=== PATIENT | male | born 1930 | race Two or more races ===

== ENCOUNTER 2020-03-25 06:00 | Day surgery (SDC) | payer OTHER ==
[~2020-03-25 06:00] MED LIST: LEVO-T75 MCG PO; OMEGA-31000 MG PO; SIMVASTATIN5 MG PO; VITAMIN C500 MG PO; XARELTO10 MG PO
[2020-03-25] MEDS ORDERED: RECTICARE30 GM TOP (15:24)
[2020-03-25] MEDS ORDERED: ULTRAM50 MG PO (15:25)
== END 2020-03-25 23:20 | disposition home or self-care (01) ==
LOC: CIR.AMB 06:00
PROVIDERS: ATTEND Surgery
DX: K64.8 Other hemorrhoids (principal)